=== PATIENT | female | born 1945 | race Caucasian/White ===

== ENCOUNTER 2017-12-06 07:07 | Inpatient (IN) | payer MEDICARE, OTHER ==
[~2017-12-06] VITALS: Ht 157.5 cm; Wt 60.6 kg
[~2017-12-06 07:07] MED LIST: AUGMENTIN875TAB PO; COLACE100 MG PO; ZPAK PO
--- NOTE | 2017-12-06 07:14 | NUR ---
PT TO ROOM VIA WHEELCHAIR.
--- NOTE | 2017-12-06 07:45 | NUR ---
INTRODUCED SELF TO PT AND PERFORMED ASSESSMENT. PT IS ABLE TO HOLD CONVERSATION WITHOUT TROUBLE BREATHING. SPO 93% ON ROOM AIR. NOTED RHONCHI TO LOWER LOBES AND EXPIRATORY WHEEZING THROUGHOUT LUNG COBURN. RT AT BEDSIDE FOR NEB. CALL LIGHT IN REACH, PT DENIES COMPLAINTS.
[2017-12-06 08:25] LABS: HEMATOCRIT 36.4 % (37.0-47.0); IMMATURE GRANULOCYTES 0.8 % (0.0-1.0); MEAN CELL VOLUME 94.1 fL CALC (80.0-100.0); RED BLOOD COUNT 3.87 mill/uL (4.20-5.60); RED CELL DISTRI WIDTH 11.9 % (11.5-15.5)
--- NOTE | 2017-12-06 08:25 | NUR ---
IV ABX INITIATED. PT ADJSUTED IN BED, THANKS STAFF FOR CARE AND ORAL SWABS PROVIDED FOR MOUTH CARE. CALL LIGHT IN REACH.
[2017-12-06 08:34] LABS: ALBUMIN 3.6 g/dL (3.2-5.0); ALKALINE PHOSPHATASE 103 u/l (38-126); ANION GAP 15 (6-22 (CALC)); BILIRUBIN, TOTAL 0.3 mg/dL (0.0-1.4); BUN 6 mg/dL (8-23); BUN/CREATININE RATIO 12 (12-20 (CALC)); CARBON DIOXIDE 28 mmol/l (22-30); CHLORIDE 100 mmol/l (95-108); CREATININE 0.5 mg/dL (0.5-1.0); GFR > 60 ML/MIN (>=60 (CALC)); GFR FOR AFR.AMER. > 60 ML/MIN (>=60 (CALC)); POTASSIUM 3.4 mmol/l (3.5-5.1); SGOT/AST 35 u/l (9-36); SGPT/ALT 59 u/l (11-66)
[2017-12-06 08:35] LABS: SODIUM 140 mmol/l (137-146)
--- NOTE | 2017-12-06 09:45 | NUR ---
ATTEMPTED TO CALL MED SURG. NURSE IN ANOTHER ROMM WILL CALL BACK
--- NOTE | 2017-12-06 10:14 | NUR ---
REPORT CALLED TO MED SURG AND PATIENT TRANSPORTED
[2017-12-06 10:30] VITALS: BP 124/73
--- NOTE | 2017-12-06 10:30 | NUR ---
PT ADMITTED TO [facility] VIA WHEELCHAIR, ACCOMPANIED BY ER NURSE. PT ALERT AND ORIENTED X3, AMBULATORY WITHOUT ASSISTANCE, WITH STEADY GAIT.ADMISSION ASSESSMENT COMPLETED. IV SITE TO LAC INFILTRATED, IV REMOVED, CATHETER INTACT. DISCUSSED POC. 02 2L NC INITIATED. CALL LIGHT IN REACH,CONTINUE TO MONITOR.
--- NOTE | 2017-12-06 12:00 | NUR ---
NEW IV SITE INITATED, LEVEQUIN CONTINUED PRESCRIBED. PT VOICES NO NEEDS OR COMPLAINTS AT THIS TIME. PT HAS A PRODUCTIVE COUGH, AWARE. SPECIMEN TO BE OBTAINED AND SENT TO LAB. CALL LIGHT IN REACH,CONTINUE TO MONITOR.
[2017-12-06 16:10] VITALS: BP 121/72
[2017-12-06 17:19] LABS: URINE BILIRUBIN - DIPSTICK NEGATIVE (NEGATIVE); URINE BLOOD DIPSTICK NEGATIVE (NEGATIVE); URINE COLOR YELLOW; URINE GLUCOSE - DIPSTICK 500 mg/dL (NEGATIVE); URINE KETONE NEGATIVE (NEGATIVE); URINE LEUK ESTERASE NEGATIVE (Negative); URINE NITRITE - DIPSTICK NEGATIVE (Negative); URINE PH 6.5 (4.5-8.0); URINE PROTEIN - DIPSTICK NEGATIVE (NEG-TRACE); URINE SPECIFIC GRAVITY 1.015; URINE UROBILINOGEN - DIPSTICK 0.2 E.U./dL (0.2)
--- NOTE | 2017-12-06 17:26 | NUR ---
PT TAKEN DOWN TO RADIOLOGY VIA WHEELCHAIR, ACCOMPANIED BY MODEL TECHNICIAN.
[2017-12-06 17:35] LABS: URINE CLARITY CLEAR
--- NOTE | 2017-12-06 17:39 | NUR ---
PT RETURNED FROM RADIOLOGY, STABLE. CALL LIGHT IN REACH,CONTINUE TO MONITOR.
[2017-12-06 19:30] VITALS: BP 100/52
--- NOTE | 2017-12-06 19:30 | NUR ---
PATIENT RESTING IN BED AT THIS TIME WITH O2 VIA NASAL CANNULA IN PLACE-AWAKE ALERT AND ORIENTEDX3. PATIENT WITH NO COMPLAINTS AT THIS TIME. IV SITE TO LEFT FOREARM INTACT-APPEARS HEALTHY AT THIS TIME. SAFETY PRECAUTIONS REINFORCED. CALL LIGHT IN REACH. WILL CONT TO MONITOR.
--- NOTE | 2017-12-06 21:50 | NUR ---
PATIENT RESTING IN BED WITH O2 VIA NASAL CANNULA IN PLACE. PRODUCTIVE COUGH WITH CLEAR SECREATIONS, WHEEZING. MEDICATED WITH SOLU-MEDROL SCHEDULED. PATIENT VOIDING CLEAR YELLOW URINE. SAFETY PRECAUTIONS REINFORCED. CALL LIGHT IN REACH. WILL CONT TO MONITOR.
--- NOTE | 2017-12-06 23:39 | NUR ---
PATIENT RESTING WITH EYES CLOSED AND HOB ELEVATED. O2 VIA NASAL CANNULA IN PLACE AT 2LPM. WOOTEN CATH PATENT AND DRAINING CLEAR YELLOW URINE. CALL LIGHT IN REACH. WILL CONT TO MONITOR.
--- NOTE | 2017-12-06 23:40 | NUR ---
PATIENT RESTING IN BED WITH O2 VIA NASAL CANNULA IN PLACE AT 2LPM. PATIENT WITH NO COMPLAINTS AT THIS TIME. HAD NEB TREATMENT TONIGHT. IV ZOSYN HUNG ORDERED VIA LEFT FOREARM IV SITE. CALL LIGHT IN REACH. WILL CONT TO MONITOR.
[2017-12-07 04:00] VITALS: BP 120/68
--- NOTE | 2017-12-07 04:41 | NUR ---
APPEARS SLEEPING WITH EYES CLOSED AND O2 VIA NASAL CANNULA IN PLACE. CALL LIGHT IN REACH. WILL CONT TO MONITOR.
[2017-12-07 04:49] LABS: HEMATOCRIT 32.7 % (37.0-47.0); HEMOGLOBIN 10.7 g/dl (12.0-16.0); IMMATURE GRANULOCYTES 0.4 % (0.0-1.0); MEAN CELL VOLUME 95.1 fL CALC (80.0-100.0); MEAN CORPUSCULAR HGB 31.1 pG CALC (26.0-32.0); MEAN CORPUSCULAR HGB CONC 32.7 g/L CALC (32.0-36.0); NEUT# 8.07 thou/uL (2.00-7.15); RED BLOOD COUNT 3.44 mill/uL (4.20-5.60); RED CELL DISTRI WIDTH 11.9 % (11.5-15.5)
[2017-12-07 04:56] LABS: ALKALINE PHOSPHATASE 85 u/l (38-126); BILIRUBIN, TOTAL 0.3 mg/dL (0.0-1.4); BUN 8 mg/dL (8-23); BUN/CREATININE RATIO 16 (12-20 (CALC)); CARBON DIOXIDE 29 mmol/l (22-30); CHLORIDE 105 mmol/l (95-108); CREATININE 0.5 mg/dL (0.5-1.0); GFR > 60 ML/MIN (>=60 (CALC)); GFR FOR AFR.AMER. > 60 ML/MIN (>=60 (CALC)); SGOT/AST 14 u/l (9-36); SGPT/ALT 41 u/l (11-66); SODIUM 143 mmol/l (137-146); TOTAL PROTEIN 5.6 g/dL (6.3-8.2)
[2017-12-07 05:02] LABS: ANION GAP 13 (6-22 (CALC))
[2017-12-07 05:03] LABS: ALBUMIN 2.8 g/dL (3.2-5.0); POTASSIUM 4.2 mmol/l (3.5-5.1)
[2017-12-07 08:14] VITALS: BP 112/63
--- NOTE | 2017-12-07 10:00 | NUR ---
PT SITTING IN CHAIR AT END OF 70'S HALLWAY, COUGHING AND SOB. [employer] TEAM MEMBER CALL TO PT SIDE. WOMEN'S SWIM COACH'S AND PARVEEN WELL. 02 SAT OBTAINED, 95% ON RA, HR ELEVATED. [employer]OCK [employer] TEAM MEMBER ORDERED FOR A STAT NEB TX TO BE GIVEN NOW. 02 2L NC PLACED, AND PT TAKEN VIA WHEELCHAIR TO HER ROOM. RT OVERHEAD PAGED AND SENT TO PT'S ROOM FOR NEB TX.
--- NOTE | 2017-12-07 10:20 | NUR ---
PT SITTING IN BED, STATES SHE FEELS BETTER. PT SMILING, NO SIGNS OF DISTRESS NOTED. RESP EVEN AND UNLABORED. 02 2L NC, ENCOURAGED USE OF O2 UPON AMBULATION, VERBALIZED UNDERSTANDING, CALL LIGHT IN REACH,CONTINUE TO MONITOR.
--- NOTE | 2017-12-07 11:41 | NUR ---
PT SITTING IN BED,EATING LUNCH. PT SEEN BY AND PAXTON, PT VOICES NO NEEDS OR COMPLAINTS AT THIS TIME. ANTIBIOTIC INFUSING, CALL LIGHT IN REACH,CONTIUE TO MONITOR.
--- NOTE | 2017-12-07 15:32 | NUR ---
PT RESTING IN BED READING. NO SIGNS OF DISTRESS NOTED, RESP EVEN AND UNLABORED. CALL LIGHT IN REACH,CONTINUE TO MONITOR.
[2017-12-07 16:00] VITALS: BP 121/71
[2017-12-07 19:30] VITALS: BP 113/59
--- NOTE | 2017-12-07 19:30 | NUR ---
PATIENT RESTING IN BED AWAKE ALERT AND ORIENTED WITH O2 VIA NASAL CANNULA IN PLACE AT 2LPM. PATIENT CONT WITH NON-PRODUCTIVE COUGH. BREATH SOUNDS ARE IMPROVED WITH ONLY SLIGHT INSPIRATORY WHEEZE NOTED. HEP LOCK TO LEFT FOREARM INTACT-APPEARS HEALTHY AT THIS TIME. STATES THAT SHE HAD SMALL BM AND NO DIFFICULTY WITH VOIDING. SAFETY PRECAUTIONS REINFORCED. CALL LIGHT IN REACH. WILL CONT TO MONITOR.
--- NOTE | 2017-12-07 21:32 | NUR ---
PATIENT RESTING IN BED WITH O2 VIA NASAL CANNULA IN PLACE. HS MEDS GIVEN ORDERED. ROBITUSSIN AC 5CC PO GIVEN FOR COUGH. CALL LIGHT IN REACH. WILL CONT TO MONITOR.
--- NOTE | 2017-12-07 23:44 | NUR ---
PATIENT RESTING IN BED WITH O2 VIA NASAL CANNULA IN PLACE. NO COMPLAINTS AT THIS TIME. ZOSYN HUNG SCHEDULED VIA LEFT FOREARM IV SITE-APPEARS HEALTHY AT THIS TIME. CALL LIGHT IN REACH. WILL CONT TO MONITOR.
--- NOTE | 2017-12-08 03:51 | NUR ---
PATIENT APPEARS SLEEPING WITH O2 VIA NASAL CANNULA IN PLACE-POSITIONED ON HER SIDE. RESP ARE EVEN AND UNLABORED. CALL LIGHT IN REACH. WILL CONT TO MONITOR.
[2017-12-08 04:00] VITALS: BP 129/73
--- NOTE | 2017-12-08 07:05 | NUR ---
REPORT RECEIVED FROM DIANE SMITH;PT RESTING ON BEDSIDE;INTRODUCED SELF TO PT AND POC DISCUSSED;PT DENIES ANY CURRENT PAIN OR NEEDS;RESPIRATIONS APPEAR EVEN AND UNLABORED ON RA;ENCOURAGED PT TO CALL FOR ASSISTANCE IF NEEDED;CALL LIGHT IN REACH WITH BED IN THE LOWEST POSITION;WILL CONTINUE TO MONITOR
--- NOTE | 2017-12-08 08:50 | NUR ---
PT OOB RESTING IN RECLINER;VS OBTAINED AND ASSESSMENT COMPLETED;PT REPORTS DRYNESS NOTED TO "SINUSES" CAUSING "BLOODY MUSCUS" WHEN SHE BLOWS HER NOSE;HUMIDIFIER APPLIED TO OXYGEN WHICH IS RUNNING AT 2L VIA NC;RESPIRATIONS EVEN AND UNLABORED,WHEEZY/DIMINISHED;GREEN/CLEAR PRODUCTIVE COUGH OBSERVED;ABDOMEN SOFT ON PALPATION AND ACTIVE IN ALL 4 QUADRANTS;#22G TO LEFT FOREARM FLUSHED AND PATENT,SITE APPEARS HEALTHY;PT DENIES ANY CURRENT NEEDS;ENCOURAGED TO CALL FOR ASSISTANCE IF NEEDED;FALL PRECAUTIONS IN PLACE WITH CALL LIGHT IN REACH;WILL CONTINUE TO MONITOR
[2017-12-08 08:51] VITALS: BP 130/73
--- NOTE | 2017-12-08 10:38 | NUR ---
PT AMBULATING HALLWAY WITH 1 PERSON ASSIST AND STEADY GAIT;OXYGEN QUALIFICATION TEST BEING PERFORMED AT THIS TIME.
--- NOTE | 2017-12-08 11:34 | NUR ---
PT OOB RESTING IN RECLINER;RESPIRATIONS EVEN AND UNLABORED ON RA,REPORTS PRODUCTIVE COUGH;PT DENIES ANY CURRENT PAIN OR NEEDS;IV SITE REMAINS PATENT TO LEFT FOREARM;ENCOURAGED TO CALL FOR ASSISTANCE IF NEEDED;CALL LIGHT IN REACH;WILL CONTINUE TO MONITOR
[2017-12-08 15:20] VITALS: BP 152/89
--- NOTE | 2017-12-08 16:00 | NUR ---
PT RESTING IN RECLINER WATCHING TV;PT DENIES ANY CURRENT PAIN OR NEEDS;RESPIRATIONS REMAIN EVEN AND UNLABORED ON RA;IV SITE PATENT TO LEFT FOREARM;ENCOURAGED TO CALL FOR ASSISTANCE IF NEEDED;CALL LIGHT IN REACH;WILL CONTINUE TO MONITOR
[2017-12-08] MEDS ORDERED: PREDNISONE10 MG PO (17:52)
[2017-12-08] MEDS ORDERED: LEVAQUIN750 MG PO (17:52)
[2017-12-08] MEDS ORDERED: ROBITUSSIN AC10 ML PO (17:52)
--- NOTE | 2017-12-08 18:38 | NUR ---
ALL DISCHARGE INFORMATION GIVEN AT THIS TIME,PRESCRIPTIONS EXPLAINED AND ALL QUESTIONS ANSWERED;PT DENIES ANY ADDITIONAL NEEDS;IV SITE REMOVED WITH CATHETER INTACT;WHEEL CHAIR TO BE PROVIDED FOR DISCHARGE
--- NOTE | 2017-12-08 18:39 | NUR ---
Discharge instructions given. Patient verbalizes understanding of same. Discharged in stable condition via Wheelchair to Home with friend. All belongings sent with pt.
== END 2017-12-08 18:38 | disposition home or self-care (01) | DRG 190 ==
LOC: ED 07:07 → ED-I 08:54 → ED 09:29 → MS2 09:30
PROVIDERS: Emergency Medicine; Nurse Practitioner; ADMIT Internal Medicine; ATTEND Internal Medicine
DX: J44.1 Chronic obstructive pulmonary disease with (acute) exacerbation (principal); J18.9 Pneumonia, unspecified organism; J44.0 Chronic obstructive pulmonary disease with (acute) lower respiratory infection; I25.10 Atherosclerotic heart disease of native coronary artery without angina pectoris; F17.210 Nicotine dependence, cigarettes, uncomplicated; E78.5 Hyperlipidemia, unspecified; M19.90 Unspecified osteoarthritis, unspecified site; R01.1 Cardiac murmur, unspecified; R09.89 Other specified symptoms and signs involving the circulatory and respiratory systems; I25.2 Old myocardial infarction; Z85.118 Personal history of other malignant neoplasm of bronchus and lung; Z95.5 Presence of coronary angioplasty implant and graft; Z91.14 Patient's other noncompliance with medication regimen; Z90.2 Acquired absence of lung [part of]
CPT/HCPCS: J1650

== ENCOUNTER 2022-09-25 13:13 | Observation (INO) | payer MEDICARE, MEDICAID ==
[~2022-09-25] VITALS: Ht 162.6 cm; Wt 87.4 kg
[2022-09-25] VITALS (22 sets, daily range): BP systolic 87–126; BP diastolic 59–89
[~2022-09-25 13:13] MED LIST changes: +LEVAQUIN750 MG PO; +PREDNISONE10 MG PO; +ROBITUSSIN AC10 ML PO
[2022-09-25 13:42] LABS: BASO% 0.7 % (0-3); IMMATURE GRANULOCYTES 0.1 % (0.0-5.0); LYMPH% 31.6 % (15-41); MEAN CELL VOLUME 96.5 fL CALC (80.0-100.0); MEAN CORPUSCULAR HGB 31.1 pG CALC (26.0-32.0); MEAN CORPUSCULAR HGB CONC 32.3 g/dL CAL (32.0-36.0); MONO% 6.2 % (2-13); NEUT# 4.29 thou/uL (2.00-7.15); NEUT% 60.4 % (42-76); RED BLOOD COUNT 4.56 mill/uL (4.20-5.60); RED CELL DISTRI WIDTH 12.5 % (11.5-15.5)
[2022-09-25 13:51] LABS: HEMOGLOBIN 14.2 g/dl (12.0-16.0)
[2022-09-25 13:55] LABS: ALKALINE PHOSPHATASE 78 u/l (38-126); BUN 4 mg/dL (8-23); BUN/CREATININE RATIO 6 (12-20 (CALC)); CHLORIDE 101 mmol/l (95-108); CREATININE 0.8 mg/dL (0.5-1.0); GFR FOR AFR.AMER. > 60 ML/MIN (>=60 (CALC)); GFR OTHER RACES > 60 ML/MIN (>=60 (CALC)); POTASSIUM 4.2 mmol/l (3.5-5.1)
[2022-09-25 13:58] LABS: ALBUMIN 4.3 g/dL (3.2-5.0); ANION GAP 15 (6-22 (CALC)); BILIRUBIN, TOTAL 0.9 mg/dL (0.02-1.3); CARBON DIOXIDE 22 mmol/l (22-30); SGOT/AST 32 u/l (9-36); SODIUM 134 mmol/l (137-146); TOTAL PROTEIN 7.3 g/dL (6.3-8.2)
[2022-09-26 05:11] VITALS: BP 91/64
[2022-09-26 07:32] VITALS: BP 88/58
[2022-09-26 07:33] VITALS: BP 117/65
[2022-09-26 11:03] VITALS: BP 108/52
[2022-09-26] MEDS ORDERED: AMOXICILLIN875 MG PO (15:02)
[2022-09-26] MEDS ORDERED: MEDDOSEPAK PO (15:03)
[2022-09-26] MEDS ORDERED: DOXYCYCLINE HY100 MG PO (15:03)
== END 2022-09-26 16:25 | disposition home or self-care (01) ==
LOC: ED 13:13 → ED-I 17:35 → ED 17:52 → MS2 17:53
PROVIDERS: Family Medicine; ADMIT Internal Medicine; ATTEND Internal Medicine
DX: J44.1 Chronic obstructive pulmonary disease with (acute) exacerbation (principal); J18.9 Pneumonia, unspecified organism; J44.0 Chronic obstructive pulmonary disease with (acute) lower respiratory infection; I25.10 Atherosclerotic heart disease of native coronary artery without angina pectoris; F17.210 Nicotine dependence, cigarettes, uncomplicated; Z95.5 Presence of coronary angioplasty implant and graft; Z85.118 Personal history of other malignant neoplasm of bronchus and lung; Z90.2 Acquired absence of lung [part of]
CPT/HCPCS: Q9967

== ENCOUNTER 2022-10-28 10:25 | Emergency (ER) | payer MEDICARE, MEDICAID ==
[~2022-10-28] VITALS: Ht 162.6 cm; Wt 61.0 kg
[~2022-10-28 10:25] MED LIST changes: +AMOXICILLIN875 MG PO; +DOXYCYCLINE HY100 MG PO; +MEDDOSEPAK PO
[2022-10-28 10:35] VITALS: BP 133/78
[2022-10-28 12:03] VITALS: BP 133/82
[2022-10-28 13:43] LABS: BASO% 0.5 % (0-3); IMMATURE GRANULOCYTES 0.1 % (0.0-5.0); LYMPH% 9.8 % (15-41); MEAN CORPUSCULAR HGB 31.2 pG CALC (26.0-32.0); MEAN CORPUSCULAR HGB CONC 31.8 g/dL CAL (32.0-36.0); MONO% 6.6 % (2-13); NEUT# 7.67 thou/uL (2.00-7.15); RED BLOOD COUNT 4.49 mill/uL (4.20-5.60)
[2022-10-28 13:49] LABS: ALBUMIN 4.1 g/dL (3.2-5.0); ALKALINE PHOSPHATASE 78 u/l (38-126); ANION GAP 17 (6-22 (CALC)); BILIRUBIN, TOTAL 1.6 mg/dL (0.02-1.3); BUN 5 mg/dL (8-23); BUN/CREATININE RATIO 7 (12-20 (CALC)); CARBON DIOXIDE 21 mmol/l (22-30); CHLORIDE 101 mmol/l (95-108); CREATININE 0.7 mg/dL (0.5-1.0); GFR FOR AFR.AMER. > 60 ML/MIN (>=60 (CALC)); GFR OTHER RACES > 60 ML/MIN (>=60 (CALC)); POTASSIUM 3.9 mmol/l (3.5-5.1); SGOT/AST 28 u/l (9-36); SODIUM 134 mmol/l (137-146); TOTAL PROTEIN 6.9 g/dL (6.3-8.2)
[2022-10-28] MEDS ORDERED: TORADOL PO (14:09)
[2022-10-28] MEDS ORDERED: ZPAK PO (14:09)
[2022-10-28] MEDS ORDERED: MEDDOSEPAK PO (14:12)
[2022-10-28 14:22] VITALS: BP 118/72
== END 2022-10-28 14:30 | disposition home or self-care (01) ==
LOC: ED 10:25
PROVIDERS: Family Medicine
DX: J44.9 Chronic obstructive pulmonary disease, unspecified (principal); I25.10 Atherosclerotic heart disease of native coronary artery without angina pectoris; F17.210 Nicotine dependence, cigarettes, uncomplicated; Z85.118 Personal history of other malignant neoplasm of bronchus and lung; Z90.2 Acquired absence of lung [part of]; Z95.5 Presence of coronary angioplasty implant and graft

== ENCOUNTER 2022-12-13 08:17 | Observation (INO) | payer MEDICARE, MEDICAID ==
[~2022-12-13] VITALS: Ht 162.6 cm; Wt 63.0 kg
[2022-12-13] VITALS (17 sets, daily range): BP systolic 84–141; BP diastolic 58–100
[~2022-12-13 08:17] MED LIST changes: +TORADOL PO
[2022-12-13] MEDS ORDERED: ALDACTONE50 MG PO (08:28)
[2022-12-13] MEDS ORDERED: MIDODRINE5 MG PO (08:28)
[2022-12-13 09:20] LABS: BASO% 0.2 % (0-3); EOS% 0.1 % (0-8); IMMATURE GRANULOCYTES 0.2 % (0.0-5.0); MEAN CELL VOLUME 95.5 fL CALC (80.0-100.0); MEAN CORPUSCULAR HGB 29.7 pG CALC (26.0-32.0); MEAN CORPUSCULAR HGB CONC 31.1 g/dL CAL (32.0-36.0); MONO% 7.8 % (2-13); NEUT# 8.84 thou/uL (2.00-7.15); NEUT% 87.7 % (42-76); RED BLOOD COUNT 4.01 mill/uL (4.20-5.60); RED CELL DISTRI WIDTH 13.2 % (11.5-15.5)
[2022-12-13 09:26] LABS: HEMATOCRIT 38.3 % (37.0-47.0); HEMOGLOBIN 11.9 g/dl (12.0-16.0)
[2022-12-13 09:27] LABS: ALKALINE PHOSPHATASE 59 u/l (38-126); BUN 9 mg/dL (8-23); BUN/CREATININE RATIO 11 (12-20 (CALC)); CHLORIDE 100 mmol/l (95-108); CREATININE 0.8 mg/dL (0.5-1.0); GFR FOR AFR.AMER. > 60 ML/MIN (>=60 (CALC)); GFR OTHER RACES > 60 ML/MIN (>=60 (CALC)); POTASSIUM 4.4 mmol/l (3.5-5.1); SGOT/AST 28 u/l (9-36); SODIUM 132 mmol/l (137-146); TOTAL PROTEIN 6.5 g/dL (6.3-8.2)
[2022-12-13 09:30] LABS: ANION GAP 21 (6-22 (CALC)); BILIRUBIN, TOTAL 2.5 mg/dL (0.02-1.3); CARBON DIOXIDE 15 mmol/l (22-30)
[2022-12-14 00:28] VITALS: BP 84/51
[2022-12-14 03:05] LABS: BASO% 0.2 % (0-3); HEMATOCRIT 40.6 % (37.0-47.0); IMMATURE GRANULOCYTES 0.2 % (0.0-5.0); LYMPH% 4.4 % (15-41); MEAN CELL VOLUME 92.5 fL CALC (80.0-100.0); MEAN CORPUSCULAR HGB 29.6 pG CALC (26.0-32.0); MONO% 4.2 % (2-13); NEUT# 5.58 thou/uL (2.00-7.15); RED BLOOD COUNT 4.39 mill/uL (4.20-5.60)
[2022-12-14 03:24] LABS: ALKALINE PHOSPHATASE 46 u/l (38-126); BUN 11 mg/dL (8-23); BUN/CREATININE RATIO 16 (12-20 (CALC)); CALCULATED LDLCHOLESTEROL 71 mg/dL (62-129 (CALC)); CHLORIDE 100 mmol/l (95-108); CHOLESTEROL HDL RATIO 2.8 (<4.4 (CALC)); CREATININE 0.7 mg/dL (0.5-1.0); GFR FOR AFR.AMER. > 60 ML/MIN (>=60 (CALC)); GFR OTHER RACES > 60 ML/MIN (>=60 (CALC)); HDL CHOLESTEROL 47 mg/dL (39.0-59.0); MAGNESIUM 1.7 mg/dL (1.6-2.3); POTASSIUM 4.2 mmol/l (3.5-5.1); SGOT/AST 21 u/l (9-36); SODIUM 132 mmol/l (137-146); TOTAL CHOLESTEROL 131 mg/dl (0-199); TOTAL PROTEIN 5.5 g/dL (6.3-8.2); TOTAL TRIGLYCERIDES 61 mg/dl (0-149); VLDL CHOLESTROL 12 mg/dl (0-48 (CALC))
[2022-12-14 03:27] LABS: ALBUMIN 3.1 g/dL (3.2-5.0); ANION GAP 15 (6-22 (CALC)); BILIRUBIN, TOTAL 1.2 mg/dL (0.02-1.3); CARBON DIOXIDE 21 mmol/l (22-30)
[2022-12-14 05:25] VITALS: BP 85/59
[2022-12-14 06:59] VITALS: BP 98/71
[2022-12-14 12:48] VITALS: BP 120/68
== END 2022-12-14 16:45 | disposition expired ==
LOC: ED 08:17 → ED-I 12:39 → ED 13:16 → MS2 13:17
PROVIDERS: Family Medicine; Nurse Practitioner Family; ADMIT Internal Medicine; ATTEND Internal Medicine
PROC: 5A12012 Performance of Cardiac Output, Single, Manual (ICD-10-PCS; principal; 2022-12-14)
PROC: 0BH17EZ Insertion of Endotracheal Airway into Trachea, Via Natural or Artificial Opening (ICD-10-PCS; 2022-12-14)
DX: J44.1 Chronic obstructive pulmonary disease with (acute) exacerbation (principal); R07.9 Chest pain, unspecified; R00.0 Tachycardia, unspecified; I46.9 Cardiac arrest, cause unspecified; R09.02 Hypoxemia; E87.29 Other acidosis; I25.10 Atherosclerotic heart disease of native coronary artery without angina pectoris; I95.9 Hypotension, unspecified; I25.2 Old myocardial infarction; F17.210 Nicotine dependence, cigarettes, uncomplicated; Z95.5 Presence of coronary angioplasty implant and graft; Z90.2 Acquired absence of lung [part of]; Z85.118 Personal history of other malignant neoplasm of bronchus and lung
CPT/HCPCS: J1650